=== PATIENT | female | born 1995 | race Caucasian/White ===

== ENCOUNTER 2016-08-20 10:20 | Inpatient (IN) | payer OTHER ==
[~2016-08-20] VITALS: Ht 154.9 cm; Wt 94.3 kg
[~2016-08-20 10:20] MED LIST: ALLERGY MEDICINE; AMBIEN10 MG PO; ANTIVERT25 MG PO; BENTYL20 MG PO; BENZONATATE100 MG; BIRTH CONTROL PILL; BUSPIRONE HCL10 MG PO; CEFTIN500 MG PO; CITRATE OF MAG296 ML PO; FIORICET,ESG1 TABLET PO; FLEXERIL10 MG PO; FLOXIN OTIC SOLN5 ML LEFT EAR; GABAPENTIN100 MG PO; LEXAPRO20 MG PO; MEDROL DOSEPAK4 MG PO; MELOXICAM15 MG PO; METH54T PO; MOBIC7.5 MG PO; MONTELUKAST SOD10 MG PO; MOTRIN600 MG PO; MOTRIN800 MG PO; NAPROSYN500 MG PO; NOHOMEMEDS; OMEPRAZOLE40 M1 PO; PERCOCET 5/31 TABLET PO; PONSTEL250 MG PO; PROAIR HFA8.5 GM IH; PROMETHAZINE HC25 M1 PO; RANITIDINE; SERTRALINE HCL100 MG PO; SERTRALINE HCL25 MG PO; SERTRALINE HCL50 MG PO; TRAMADOL HCL50 MG PO; TRAZODONE HCL100 MG PO; VENTOLIN HFA18 GM IH; VYVANSE20 MG PO; ZOFRAN ODT4 MG PO; ZOFRAN4 MG PO; [UNRECOGNIZED DRUG - REMARK]
[2016-08-20 11:02] LABS: BASOPHIL COUNT 0.1 K/uL (0-0.1); EOSINOPHIL (%) 2.7 % (0-5); EOSINOPHIL COUNT 0.1 K/uL (0-0.3); HEMATOCRIT 41.2 % (36.0-46.0); IMMATURE GRANULOCYTE (%) 0.2 % (0.0-0.7); IMMATURE GRANULOCYTE COUNT 0.1 K/uL; LYMPHOCYTE COUNT 1.7 K/uL (1.0-2.8); MCH 32.4 PG (29.0-34.0); MCV 92.6 FL (83-99); MEAN PLAT.VOLUME 9.9 uM^3 (9.5-12.4); MONOCYTE (%) 10.3 % (3-12); MONOCYTE COUNT 0.5 K/uL (0-0.8); NEUTROPHIL (%) 52.8 % (45-76); NEUTROPHIL COUNT 2.8 K/uL (1.8-6.4); PLATELET COUNT 188 K/uL (156-360); RBC DIS.WIDTH-CV 13.2 % (11.8-14.6); RBC DIS.WIDTH-SD 43.7 % (39-53); RED BLOOD COUNT 4.45 M/uL (3.80-5.20); WHITE BLOOD COUNT 5.2 K/uL (4.1-10.2)
[2016-08-20 11:05] LABS: ADD MIUA? NO; BILIRUBIN NEGATIVE; BLOOD NEGATIVE; COLOR YELLOW ((YELLOW)); GLUCOSE (STRIP) NEGATIVE; KETONES NEGATIVE; LEUKOCYTES NEGATIVE; NITRITE NEGATIVE; PROTEIN (STRIP) NEGATIVE; SPECIFIC GRAVITY 1.023 (1.000-1.030)
[2016-08-20 11:11] LABS: CHLORIDE 109 mEq/L (99-109); POTASSIUM 3.7 mEq/L (3.7-5.4); SODIUM 142 mEq/L (136-147)
[2016-08-20 11:13] LABS: GLUCOSE 82 mg/dL (70-99)
[2016-08-20 11:14] LABS: AMPHETAMINE NEGATIVE (500 ng/mL); BARBITURATES NEGATIVE (200 ng/mL); BENZODIAZEPINES NEGATIVE (150 ng/mL); COCAINE NEGATIVE (150 ng/mL); INTERNAL CONTROLS VALID? YES; METHADONE NEGATIVE (200 ng/mL); METHAMPHETAMINE NEGATIVE (500 ng/mL); OPIATES (MORPHINE) NEGATIVE (100 ng/mL); OXYCODONE NEGATIVE (100 ng/mL); PHENCYCLIDINE NEGATIVE (25 ng/mL); PROPOXYPHENE NEGATIVE (300 ng/mL); THC CANNABINOIDS NEGATIVE (50 ng/mL); TRICYCLIC ANTIDEPRESSANTS NEGATIVE (300 ng/mL)
[2016-08-20 11:15] LABS: ANION GAP 10 MEQ/L (2-14)
[2016-08-20 11:16] LABS: SERUM ETHYL ALCOHOL < 10 mg/dL
[2016-08-20 11:17] LABS: GFR ESTIMATE (CALCULATED) > 59 mL/min/
[2016-08-20 11:18] LABS: UREA NITROGEN (BUN) 11 mg/dL (9-23)
[2016-08-20 11:23] LABS: QUANTITATIVE HCG < 4.0 MIU/ML
[2016-08-20 13:29] VITALS: BP 135/83
[2016-08-20 16:24] VITALS: BP 117/79
[2016-08-21 07:51] VITALS: BP 136/68
[2016-08-21] MEDS ORDERED: GABAPENTIN100 MG PO (10:28)
[2016-08-21] MEDS ORDERED: SERTRALINE HCL25 MG PO (10:28)
[2016-08-21 13:27] LABS: CHLAMYDIA TRACHOMATIS NEGATIVE; NEISSERIA GONORRHOEAE NEGATIVE
== END 2016-08-21 12:52 | disposition home or self-care (01) | DRG 885 ==
LOC: EME 10:20 → EDOF 12:08 → 1WEST 13:23
PROVIDERS: Emergency Medicine
DX: F33.9 Major depressive disorder, recurrent, unspecified (principal); R45.851 Suicidal ideations; F81.9 Developmental disorder of scholastic skills, unspecified; E66.3 Overweight; Z68.39 Body mass index [BMI] 39.0-39.9, adult
CPT/HCPCS: 80048; 81003; 84702; 85025; 87491; 87591; 90839; 99281; 99285; G0480